=== PATIENT | female | born 1985 | race Hispanic/Latino ===

== ENCOUNTER 2021-10-13 16:54 | Emergency (ER) | payer SELFPAY ==
[2021-10-13] MEDS ORDERED: Acetaminophen 325 MG TAB ONE (17:33)
[2021-10-13] MEDS ORDERED: Ondansetron ODT 4 MG TAB ONE (17:33)
[2021-10-13] MEDS ORDERED: Ketorolac Tromethamine 30 MG/ML VIAL ONE (17:33)
== END 2021-10-13 18:00 | disposition home or self-care (01) ==
LOC: NAV ERS 16:54
DX: R51.9 Headache, unspecified (principal); R11.0 Nausea; E11.9 Type 2 diabetes mellitus without complications; F17.290 Nicotine dependence, other tobacco product, uncomplicated
CPT/HCPCS: 96372; 99283; J1885; Q0162